=== PATIENT | female | born 1930 | race Caucasian/White ===

== ENCOUNTER 2018-01-15 17:05 | Emergency (ER) | payer MEDICARE ==
[~2018-01-15] VITALS: Ht 320 cm; Wt 72.7 kg
[2018-01-15 18:21] VITALS: BP 177/77
== END 2018-01-15 19:04 | disposition home or self-care (01) ==
LOC: ER 17:06
DX: S05.12XA Contusion of eyeball and orbital tissues, left eye, initial encounter (principal); E78.00 Pure hypercholesterolemia, unspecified; I10 Essential (primary) hypertension; K21.9 Gastro-esophageal reflux disease without esophagitis; G89.29 Other chronic pain; Z90.49 Acquired absence of other specified parts of digestive tract; Z90.710 Acquired absence of both cervix and uterus; Z98.890 Other specified postprocedural states; W01.0XXA Fall on same level from slipping, tripping and stumbling without subsequent striking against object, initial encounter; Y93.89 Activity, other specified; Y92.89 Other specified places as the place of occurrence of the external cause; Y99.8 Other external cause status
CPT/HCPCS: 70450; 99284